=== PATIENT | female | born 1980 | race African-American/Black ===

== ENCOUNTER 2016-11-05 08:41 | Emergency (ER) | payer OTHER ==
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
[~2016-11-05 08:41] MED LIST: ADDERALL PO; BACTRIM DS TABL1 TA1 PO; BACTRIM DS TABL1 TA2 PO; BENZONATATE PO; CIPRO PO; CIPRO500 MG/5 M PO; CLARITIN10 M3; CLEOCIN100 MG/SUP VG; CLINDAMYCIN PV; DIFLUCAN PO; FLAGYL PO; MACROBID100 MG PO; METROGEL-VAGINA70 GM VG; METROGEL55 GM TP; METROGEL60 GM TP; MUCINEX D ER T1 EAC1 PO; NO MEDICATIONS; PRENATAL1 TA1 PO; PYRIDIUM PO; PYRIDIUM100 MG PO; SUDAFED60 MG; VIBRAMYCIN100 M1 PO; ZOFRAN ODT4 MG PO; ZOVIRAX800 MG; [UNRECOGNIZED DRUG - OTHER] VAG
[2017-01-09] MEDS ORDERED: VITAMIN D400 UNI2 (18:23)
== END 2016-11-05 09:53 | disposition home or self-care (01) ==
LOC: SED 08:41
DX: S13.4XXA Sprain of ligaments of cervical spine, initial encounter (principal); F98.8 Other specified behavioral and emotional disorders with onset usually occurring in childhood and adolescence; V49.40XA Driver injured in collision with unspecified motor vehicles in traffic accident, initial encounter; Y92.410 Unspecified street and highway as the place of occurrence of the external cause
CPT/HCPCS: 72040; 99283

== ENCOUNTER 2017-01-09 19:14 | Emergency (ER) | payer OTHER ==
[2017-01-09 18:39] LABS: URINE APPEARANCE CLEAR; URINE BILIRUBIN NEG (NEG); URINE BLOOD TRACE-LYSED (NEG); URINE COLOR YELLOW; URINE GLUCOSE NEG (NORM); URINE KETONE TRACE (NEG); URINE LEUKOCYTE ESTERASE 2+ (NEG); URINE NITRATE NEG (NEG); URINE PROTEIN TRACE (NEG); URINE SPECIFIC GRAVITY 1.025 (1.003-1.035); URINE UROBILINOGEN 0.2 MG/DL (NORM)
[2017-01-09 18:40] LABS: MICRO INDICATED? YES
[2017-01-09 18:41] LABS: CULTURE INDICATED? YES; URINE BACTERIA 1+ (NEG); URINE MUCUS PRESENT; URINE SQUAMOUS EPITHELIAL CELL MODERATE /[HPF]; URINE TRANSITIONAL EPI CELLS FEW /[HPF]
[~2017-01-09 19:14] MED LIST changes: +VITAMIN D400 UNI2
[2017-01-11 20:16] LABS: CHLAMYDIA TRACH Not Detected (Not Detected); N GONOR Not Detected (Not Detected)
== END 2017-01-09 20:55 | disposition home or self-care (01) ==
LOC: SED 19:14
PROVIDERS: Nurse Practitioner
DX: N30.00 Acute cystitis without hematuria (principal); N76.0 Acute vaginitis; F98.8 Other specified behavioral and emotional disorders with onset usually occurring in childhood and adolescence
CPT/HCPCS: 81003; 84703; 87086; 87210; 87491; 87591; 87808; 87905; 96372; 99284; J0696